=== PATIENT | female | born 1970 ===

== ENCOUNTER 2020-09-25 12:42 | Outpatient (CLI) | payer MEDICARE | END 2020-09-25 12:43 | disposition home or self-care (01) | LOC: BICMAMMO 12:42 | PROVIDERS: ATTEND Family Medicine | DX: Z12.31 Encounter for screening mammogram for malignant neoplasm of breast (principal); Z98.890 Other specified postprocedural states; Z80.3 Family history of malignant neoplasm of breast | CPT/HCPCS: 77063; 77067 ==